=== PATIENT | male | born 1990 ===

== ENCOUNTER → 2017-07-27 | Outpatient (REF) | payer OTHER ==
[2017-07-27 09:48] LABS: SEMEN APPEARANCE YELLOW (OPAQUE); SEMEN VISCOSITY LIQUID (LIQUID); SEMEN VOLUME 7.5 ml (4.0-5.0); WBC CONCENTRATION <=1 M/ml (<=1 M/ml)
[2017-07-27 09:49] LABS: % NORMAL FORMS 9 % (>=4); IMMOTILITY 51 %; NON PROGRESSIVE MOTILITY (c) 10 %; PROGRESSIVE MOTILITY (a) 39 % (>=32); SPERM CONCENTRATION 87.8 M/ml (>=15.0); SPERM# 658.7 M/Ejac (>=39); TOTAL FUNCTIONAL 53.9 M/Ejac.; TOTAL MOTILITY 49 % (>=40)
== END ==
LOC: M LAB REF 09:36
DX: N46.9 Male infertility, unspecified (principal)